=== PATIENT | female | born 1970 | race Asian ===

== ENCOUNTER 2021-11-03 14:18 | Emergency (ER) | payer BC ==
[~2021-11-03] VITALS: Ht 152.4 cm; Wt 45.4 kg
[2021-11-03] MEDS ORDERED: ACETAMINOPHEN ES 500 MG TABLET PO ONE (16:00)
--- NOTE | 2021-11-03 16:10 | NUR ---
Nutrition Aide assumes care: received patient in the ER hallway,sitting on a wheelchair, AOX4, calm & breathing easily, [email or web address].
[2021-11-03] MEDS ORDERED: ACETAMINOPHEN ES 500 MG TABLET ONE (16:20)
--- NOTE | 2021-11-03 16:21 | NUR ---
RIDDHID video presentation operator#[phone] notified.
[2021-11-03 17:01] VITALS: BP 133/78
--- NOTE | 2021-11-03 17:02 | NUR ---
Patient discharged to home in stable condition. Written and verbal after care instructions given. Patient verbalizes understanding of instructions. Stressed follow up or return to ER for worsening s/s. Pt left ER w/ steady gait accompained by daughter.
== END 2021-11-03 17:02 | disposition home or self-care (01) ==
LOC: ER 14:21
DX: S00.83XA Contusion of other part of head, initial encounter (principal); Y08.09XA Assault by strike by other specified type of sport equipment, initial encounter; Y92.89 Other specified places as the place of occurrence of the external cause; R03.0 Elevated blood-pressure reading, without diagnosis of hypertension
CPT/HCPCS: A4663; A9150

== ENCOUNTER 2023-12-05 20:06 | Emergency (ER) | payer BC ==
[~2023-12-05] VITALS: Ht 149.9 cm; Wt 45.4 kg
[2023-12-05] MEDS ORDERED: TDAP DIPH,PERTUSS,TET VAC/PF 0.5 ML DISP.SYRIN IM ONE ×2 (20:30→20:31)
[2023-12-05] MEDS ORDERED: LIDOCAINE HCL 1% 20 ML VIAL IJ ONE (20:30)
[2023-12-05] MEDS ORDERED: LIDOCAINE HCL 1% 20 ML VIAL ONE (20:31)
[2023-12-05 22:33] VITALS: BP 116/62; O2SAT 98
== END 2023-12-05 22:20 | disposition home or self-care (01) ==
LOC: ER 20:06
DX: S01.81XA Laceration without foreign body of other part of head, initial encounter (principal); F17.200 Nicotine dependence, unspecified, uncomplicated; W18.39XA Other fall on same level, initial encounter; Z91.81 History of falling; Y93.89 Activity, other specified; Y92.89 Other specified places as the place of occurrence of the external cause; Y99.8 Other external cause status
CPT/HCPCS: 12013; 70450; 90471; 90715; 99285; J3490; A4606; A4663